=== PATIENT | female | born 1990 | race African-American/Black ===

== ENCOUNTER 2016-02-26 11:51 | Observation (INO) | payer BC ==
--- NOTE | 2016-02-26 12:07 | CPEKG ---
Heart Rate: 84 RR Interval: 714 P-R Interval: 140 QRSD Interval: 78 QT Interval: 368 QTC Interval: 436 P [place]: 45 QRS [place]: 61 T Wave [place]: 41 EKG Severity - OTHERWISE NORMAL ECG - EKG Impression: SINUS ARRHYTHMIA, RATE 68-95 EKG Impression: Very mild p.r.n. depression inferior leads Electronically Signed By: Reji Ibarra 26-Feb-2016 12:09:03
[2016-02-26] MEDS ORDERED: KETOROLAC 30 MG/1 ML SDV IVP ONE (12:26)
--- NOTE | 2016-02-26 13:01 | EDPHY ---
H & P Stated Complaint: chest pain (recent HX pericarditis) lappy 01/26 Time Seen by Provider: 02/26/16 12:57 HPI/ROS: HPI: 25-year-old female presents to emergency department with chief concern chest pain. Reports ongoing 7/10 sharp left-sided pleuritic chest pain for 1 month associated with productive intermittent cough and fever up to 105 intermittently. Was diagnosed with pericarditis on 01/17/2016. Has been using ibuprofen as well as her chronic pain meds intermittently with no improvement. Denies dizziness, nausea, vomiting, abdominal pain, diarrhea. No urinary symptoms. No calf pain or swelling. No recent long car or plane travel. Has chronic back and pelvic pain. Has a history of fibromyalgia, chronic pain, low back and pelvic pain, endometriosis. No personal or family history of coagulopathy. Works for [employer]. Patient at [facility]. Takes oral contraceptives. ROS: 10 point review of systems is negative other than as stated in HPI Source: Patient Exam Limitations: No limitations - Personal History LMP (Females 10-55): 8-14 Days Ago Current Tetanus/Diphtheria Vaccine: Unsure Current Tetanus Diphtheria and Acellular Pertussis (TDAP): Unsure Tetanus Vaccine Date: 2006 - Medical/Surgical History Hx Asthma: Yes Hx Chronic Respiratory Disease: No Hx Diabetes: No Hx Cardiac Disease: No Hx Renal Disease: No Hx Cirrhosis: No Hx Alcoholism: No Hx HIV/AIDS: No Hx Splenectomy or Spleen Trauma: No Other PMH: pericarditis, IBS, asthma, fibromyalgia, RA, eczema, breast bx, laproscopic ovarian cyst removal, unexplained hair loss, d and c, hx thyroid issues. Chronic back and pelvic pain - Family History Significant Family History: No pertinent family hx - Social History Smoking Status: Never smoked Alcohol Use: None Drug Use: Other (Chronic pain medication) Additional Social History: [employer] student - Physical Exam Exam: Vital signs temp 37.1, heart rate 97, respiratory rate 16, blood pressure 128/ 90, 96% on room air General: Awake, alert, calm, cooperative. No acute distress. Head: Normalocephalic. Atraumatic. EENT: PERRLA. EOMI. No pallor or injection. Anicteric. No nystagmus. No injection. TMs intact bilaterally with normal landmarks. No rhinnorhea, nasal passages clear. Oropharynx without redness, exudates, or lesions. Tonsils 2+ bilaterally, no exudates. Neck: Supple, nontender. No lymphadenopathy. Full range of motion. No meningismus. Respiratory: Breathing unlabored. Breath sounds diminished but clear throughout. No adventitious sounds. CV: Chest nontender, atraumatic. Heart rate regular. No murmur, distal pulses 2+ bilaterally. Brisk cap refill all extremities. GI: Abdomen soft, nontender. Bowel sounds normoactive and positive x4 quadrants. Neuro: Alert. Oriented x 3. Speech clear. Nonfocal cranial nerves throughout. Sensation intact all extremities. Skin: Skin warm, dry, intact. No rashes, abrasions, or lacerations. Skin turgor normal. Extremities: Full range of motion in all 4 extremities. Strength 5+ all extremities. Constitutional: Initial Vital Signs Temperature (C) 37.1 C 02/26/16 11:55 Heart Rate 97 02/26/16 11:55 Respiratory Rate 16 02/26/16 11:55 Blood Pressure 128/90 H 02/26/16 11:55 O2 Sat (%) 96 02/26/16 11:55 O2 Delivery Mode Room Air Allergies/Adverse Reactions: latex Allergy (Verified 01/07/16 15:48) morphine Allergy (Verified 01/07/16 15:48) shellfish derived Allergy (Verified 01/07/16 15:48) tree nut [Nuts] Allergy (Verified 01/07/16 15:48) Home Medications: Medication Instructions Recorded Baclofen [Baclofen 10 mg (*)] 10 mg PO HS 11/17/13 Loratadine [Allergy] 10 mg PO HS 11/17/13 Pregabalin [Lyrica] 450 mg PO HS 11/17/13 Hydrocodone/Acetaminophen [[place] 1 each PO HS PRN 10/23/15 5/325 (*)] Zolpidem Tartrate [Ambien 5MG (*)] 5 mg PO HS 10/23/15 Linaclotide [Linzess] 145 mcg PO HS 12/16/15 Meloxicam [Mobic 15 mg] 15 mg PO HS 01/07/16 Cholecalciferol Vit D3 [Vitamin D3 1,000 units PO HS 02/26/16 (*)] Multivitamins [Multivitamin (*)] 1 each PO HS 02/26/16 Medical Decision Making ED Course/Re-evaluation: 25-year-old female presents to emergency department with ongoing anterior left- sided sharp pleuritic chest pain x1 month. She reports fevers intermittently over the past month including a 105 degree temp 3 days ago. She will be admitted for ongoing chest pain evaluation including echo. Blood cultures are pending. EKG shows sinus dysrhythmia, rate 84. Normal intervals, no axis deviation, no evidence of acute ischemia. Chest x-ray negative. White count 4440. Basic metabolic panel unremarkable. D-dimer negative. Troponin negative , sed rate 10. Patient given 30 mg IV Toradol. Report has been given to Janeen Casillas NP. Patient will be admitted to PCU for further evaluation of her ongoing chest pain. Differential Diagnosis: Differential diagnosis includes but is not limited to costochondritis, pericarditis, acute coronary syndrome, pulmonary embolism, upper respiratory infection, pneumonia, chronic fibromyalgia - Data Points Laboratory Results: Laboratory Results 02/26/16 12:20 02/26/16 12:20 02/26/16 12:20 WBC 4.40 10^3/uL (3.80-9.50) RBC 4.88 10^6/uL (4.18-5.33) Hgb 13.4 g/dL (12.6-16.3) Hct 38.1 % (38.0-47.0) MCV 78.1 L fL (81.5-99.8) MCH 27.5 L pg (27.9-34.1) MCHC 35.2 g/dL (32.4-36.7) RDW 14.3 % (11.5-15.2) Plt Count 276 10^3/uL (150-400) MPV 10.9 fL (8.7-11.7) Neut % (Auto) 55.9 % (39.3-74.2) Lymph % (Auto) 30.9 % (15.0-45.0) [place] % (Auto) 6.6 % (4.5-13.0) Eos % (Auto) 6.1 % (0.6-7.6) Baso % (Auto) 0.5 % (0.3-1.7) Nucleat RBC Rel Count 0.0 % (0.0-0.2) Absolute Neuts (auto) 2.46 10^3/uL (1.70-6.50) Absolute Lymphs (auto) 1.36 10^3/uL (1.00-3.00) Absolute Monos (auto) 0.29 L 10^3/uL (0.30-0.80) Absolute Eos (auto) 0.27 10^3/uL (0.03-0.40) Absolute Basos (auto) 0.02 10^3/uL (0.02-0.10) Absolute Nucleated RBC 0.00 10^3/uL (0-0.01) Immature Gran % 0.0 % (0.0-1.1) Immature Gran # 0.00 10^3/uL (0.00-0.10) ESR 10 MM/HR (0-20) D-Dimer < 0.27 ug/mLFEU (0.00-0.50) Sodium 141 mEq/L (134-144) Potassium 4.0 mEq/L (3.5-5.2) Chloride 105 mEq/L (97-110) Carbon Dioxide 26 mEq/l (22-31) Anion Gap 10 mEq/L (8-16) BUN 14 mg/dL (7-23) Creatinine 0.6 mg/dL (0.6-1.0) Estimated GFR > 60 Glucose 84 mg/dL (70-100) Calcium 9.4 mg/dL (8.5-10.4) Troponin I < 0.012 ng/mL (0-0.034) Medications Given: Discontinued Medications Ketorolac Tromethamine (Toradol) 30 mg IVP EDNOW ONE Stop: 02/26/16 12:27 Last Admin: 02/26/16 12:33 Dose: 30 mg Departure - Departure Disposition: [facility] Inpatient Acute Clinical Impression: Chest pain Condition: Good
[2016-02-26 13:02] LABS: ADD DIFF? NO; ADD MORPH? NO; ADD SCAN? NO; ATYPICAL LYMPHOCYTE FLAG 30 (0-99); FRAGMENT RBC FLAG 0 (0-99); HEMATOCRIT 38.1 % (38.0-47.0); HEMOGLOBIN 13.4 g/dL (12.6-16.3); LEFT SHIFT FLG 0 (0-99); LIPEMIA HEMOLYSIS FLAG 90 (0-99); MEAN CELL HEMOGLOBIN 27.5 pg (27.9-34.1); MEAN CELL HEMOGLOBIN CONCENTR. 35.2 g/dL (32.4-36.7); MEAN CELL VOLUME 78.1 fL (81.5-99.8); MEAN PLATELET VOLUME 10.9 fL (8.7-11.7); PLATELET CLUMPS FLAG 0 (0-99); PLATELET COUNT 276 10^3/uL (150-400); RED BLOOD CELL COUNT 4.88 10^6/uL (4.18-5.33); RED CELL DISTRIBUTION WIDTH 14.3 % (11.5-15.2)
[2016-02-26 13:08] LABS: ANION GAP 10 mEq/L (8-16); CALCIUM 9.4 mg/dL (8.5-10.4); CARBON DIOXIDE 26 mEq/l (22-31); CHLORIDE 105 mEq/L (97-110); CREATININE 0.6 mg/dL (0.6-1.0); GLOMERULAR FILTRATION RATE > 60; GLUCOSE 84 mg/dL (70-100); SODIUM 141 mEq/L (134-144)
--- NOTE | 2016-02-26 13:38 | DX ---
Chest PA and lateral HISTORY: Left-sided chest pain. FINDINGS: Compare January 17, 2016. Heart and pulmonary vessels are normal. Lungs are clear. No pleur al effusion. No pneumothorax. Mild scoliosis is unchanged. IMPRESSION: Essentially negative. No change from January 17, 2016.
[2016-02-26 14:03] LABS: HEMATOCRIT 37.7 % (38.0-47.0)
[2016-02-26] MEDS ORDERED: HYDROCODONE/APAP 5/325 TAB PO PRN (15:17)
[2016-02-26] MEDS ORDERED: ACETAMINOPHEN 325 MG TAB PO PRN (15:22)
[2016-02-26] MEDS ORDERED: ONDANSETRON 4 MG/2 ML VIAL IVP PRN (15:22)
[2016-02-26] MEDS ORDERED: PROMETHAZINE HCL 25 MG/ML VIAL IVP PRN (15:22)
[2016-02-26] MEDS ORDERED: NS 1,000 ML IV SCH (15:30)
--- NOTE | 2016-02-26 15:53 | GHP ---
[f rep st] HISTORY AND PHYSICAL DATE OF ADMISSION: 02/26/2016 CHIEF COMPLAINT: Chest pain. HISTORY: Natalia is a 25-year-old female, who has been having constant chest pain for the last month. She was seen in the emergency room a few weeks ago and was diagnosed with pericarditis. She has co ntinuous chest pain that has not improved over the last couple of weeks. She has ongoing shortness o f breath and lightheadedness. The chest pain is constant 24/, although it does worsen with activity . Just walking across campus, she gets increasing chest pain. The chest pain wakes her up at night. She describes it as a left-sided sharp pain that is reproducible to chest wall palpation, radiates from the front to the back. It is pleuritic only sometimes. She has also had intermittent fevers over the last 3 weeks. Her last fever was 3 days ago when she h ad a temperature of a 105. Fever has been coming and going. PAST MEDICAL HISTORY: 1. Recent pericarditis. 2. Fibromyalgia. 3. Endometriosis, status post recent laparoscopic pelvic surgery. 4. Rheumatoid arthritis. 5. Asthma. MEDICATIONS: Please see computer record for full detailed list. ALLERGIES: Shellfish, latex, and morphine. SOCIAL HISTORY: No smoking. No alcohol. She lives with roommates. 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 She i s originally from [place] and her parents both still live in the state. REVIEW OF SYSTEMS: Complete review of systems obtained and review of systems is negative on constitu tional, HEENT, GI, pulmonary, cardiovascular, , hematology, musculoskeletal, endocrine, psych excep t for positives and negatives as in HPI. FAMILY HISTORY: Parents are both alive and healthy with hypertension and asthma. PHYSICAL EXAMINATION: GENERAL: Well developed, well nourished female, in no acute distress. VITAL SIGNS: Temperature is 37.1, pulse 76, blood pressure 128/63, satting 95% on room air. EYES: Normal conjunctiva. Pupils equal and reactive to light. ENT: Normal ears and nose. Hearing intact. Norm al teeth. Oropharynx is moist. NECK: Trachea midline. No thyromegaly. CHEST: Normal effort. JAVON GS: Clear to auscultation bilaterally. CARDIOVASCULAR: Regular rhythm. No murmur. No lower extre mity edema. ABDOMEN: Soft, nontender. No hepatosplenomegaly. SKIN: Warm, dry, intact without casey h. MUSCULOSKELETAL: No cyanosis or clubbing. NEUROLOGIC: Strength 5/5 upper and lower extremities . NEUROLOGIC: Cranial nerves intact. Normal sensation to light touch. PSYCH ASSESSMENT: Alert and oriented x3. Normal mood and affect. Normal judgment. Normal memory. LABS: White count 4.4, hematocrit 37.7, platelets 276. Sodium 141, potassium 4.0, chloride 105, bic arb 26, BUN 14, creatinine 0.6, glucose 84. Troponins negative. Sed rate is 10. D-dimer is negativ e. IMAGING: EKG viewed by me and my personal interpretation is normal sinus rhythm, no ST-T wave change s. Chest x-ray is negative. ASSESSMENT AND PLAN: 1. Continuous chest pain for the last 3 weeks. She has minimal risk factors for coronary artery dis ease and very atypical presentation, so doubt ischemia. Will check 1 more troponin. I also doubt pu lmonary embolus with her negative D-dimer. She was told in the emergency room a few weeks ago that s he had pericarditis. I do not think they ever had any objective findings to confirm this. I will ch maggy an echocardiogram to rule out development of effusion. My suspicion is that this may be musculos keletal in origin. She may have a costochondritis. Will treat with NSAIDs. 2. Fever. Blood cultures were sent in the emergency room. She is currently afebrile and has a norm al white blood cell count with normal differential. Influenza is pending. Will monitor clinical cou rse. 3. Fibromyalgia. Will continue her usual Lyrica and baclofen. ADMISSION STATUS: 1. Will admit to observation. Depending on clinical course, she may go home tomorrow. 2. DVT prophylaxis. She is low risk. Will hold off on pharmacologic prophylaxis. 3. Code status is full. /[id number]/MODL
--- NOTE | 2016-02-26 16:19 | ECHO ---
[id number] + + [id number] : : [place] [address] : : [phone] + Adult Echocardiographic Report + ----+ :Name: NAVDEEP SANTIAGO JStudy Date: 02/26/2016 03:32 PM : : Hospital Admission Number: [id number] Location: 222: :: 1990 Gender: Female Height: 63 in : :Age: 25 yrs Race: BAA Weight: 121 lb : :Reason For Study: Eval for pericarditis : : BSA: 1.6 meters2 : :History: History of Endocarditis, New onset Chest Pain : + ----+ MMode/2D Measurements & Calculations IVSd: 0.77 cm LVIDd: 4.0 cm FS: 39.4 % Ao root diam: 2.6 cm LVPWd: 0.79 cm LVIDs: 2.4 cm EDV(Teich): 70.6 ml ACS: 1.5 cm ESV(Teich): 20.9 ml EF(Teich): 70.4 % Normal Measurement Values: + + :LVIDd (3.5-5.7cm) IVSd (0.6-1.1cm) LVPWd (0.6-1.1cm) Aortic Root (2.0-3.7cm)Left Atrium (1.5-4.0cm): :LV Vol(d) (76-115ml) LV Vol(s) (29-48ml) Ejec Fraction (50-65%)PV Lester (0.6- 1.2m/s) TV Lester (0.4-1.0m/s) : :MV E Lester (0.8-1.0m/s)MV A [place]ester (0.3-1.0m/s)LVOT [place]ester (0.7-1.2m/s) Asc Ao Lester ( 0.9-1.8m/s) : + + Doppler Measurements & Calculations MV E max lester: Ao V2 max: LV V1 max: MR max lester: 74.0 cm/sec 101.8 cm/sec 79.0 cm/sec 369.2 cm/sec MV A max lester: Ao max PG: LV V1 max PG: MR max P.0 cm/sec 4.1 mmHg 2.5 mmHg 54.5 mmHg MV E/A: 1.8 PA V2 max: 88.2 cm/sec PA max P.1 mmHg Left Ventricle The left ventricle is normal in size. There is normal left ventricular wall thickness. The left ventricular ejection fraction is normal. Ejection Fraction = 71%. No regional wall motion abnormalities noted. Right Ventricle The right ventricle is normal in size and function. Atria The left atrial size is normal. Right atrial size is normal. Mitral Valve The mitral valve leaflets appear thickened, but open well. There is no evidence of mitral valve prolapse. There is no mitral valve stenosis. There is trace mitral regurgitation. Tricuspid Valve Normal tricuspid valve. No tricuspid regurgitation. Aortic Valve The aortic valve is normal in structure and function. There is no aortic stenosis. There is no aortic insufficiency. Pulmonic Valve The pulmonic valve is normal in structure and function. There is no pulmonic valvular regurgitation. Great Vessels The aortic root is normal size. Pericardium/Pleural There is no pericardial effusion. Conclusion A complete two-dimensional transthoracic echocardiogram was performed (2D, M-mode, Doppler and color flow Doppler). The left ventricular ejection fraction is normal. Ejection Fraction = 71%. No regional wall motion abnormalities noted. The right ventricle is normal in size and function. The mitral valve leaflets appear thickened, but open well. There is trace mitral regurgitation. Normal tricuspid valve The aortic valve is normal in structure and function. There is no aortic stenosis. There is no pericardial effusion. I DID SOME OFF AXIS VIEWS AT THE END TO LOOK FOR EFFUSION, TRIVIAL IF AT ALL JEYSON Final Reading Physician: Halle Mendiola signed on 02/26/2016 04:16 PM Ordering Physician: Lou Winston Performed By: eJyson Tobin, ROGERCS
[2016-02-26] MEDS: KETOROLAC 30 MG/1 ML SDV IVP PRN (20:32)
[2016-02-26] MEDS ORDERED: PREGABALIN PO SCH ×2 (21:00)
[2016-02-26] MEDS ORDERED: ZOLPIDEM TARTRATE 5 MG TAB PO SCH (21:00)
[2016-02-26] MEDS ORDERED: CETIRIZINE 10 MG TAB PO SCH (21:00)
[2016-02-26] MEDS ORDERED: NON-FORMULARY NEW DRUG (Meloxicam [Mobic 15 Mg] 15 MG) PO SCH (21:00)
[2016-02-26] MEDS ORDERED: [UNRECOGNIZED DRUG - REMARK] PO SCH (21:00)
[2016-02-26] MEDS ORDERED: MELOXICAM 15 MG PO SCH (21:00)
[2016-02-26] MEDS ORDERED: BACLOFEN 10 MG TAB PO SCH (21:00)
[2016-02-26] MEDS ORDERED: LINACLOTIDE 145 MCG PO SCH (21:00)
[2016-02-26] MEDS ORDERED: Linaclotide [Linzess] 145 MCG) PO ONE (21:00)
[2016-02-26] MEDS ORDERED: LYRICA 150 MG PO ONE (21:00)
[2016-02-26] MEDS ORDERED: Linaclotide [Linzess] 145 MCG) PO SCH (21:00)
[2016-02-26 21:48] LABS: COLOR YELLOW; LEUKOCYTE ESTERASE,URINE NEGATIVE (NEGATIVE); NITRITE,URINE NEGATIVE (NEGATIVE)
[2016-02-27 05:36] LABS: TROPONIN I < 0.012 ng/mL (0-0.034)
[2016-02-27 05:38] LABS: ALANINE AMINOTRANSFERASE 29 IU/L (9-52); ALBUMIN 3.4 g/dL (3.5-5.0); ALKALINE PHOSPHATASE 88 IU/L (38-126); ASPARTATE AMINOTRANSFERASE 19 IU/L (14-46); BILIRUBIN,TOTAL 0.6 mg/dL (0.1-1.4); BILIRUBIN-CONJUGATED 0.3 mg/dL (0.0-0.5); BILIRUBIN-UNCONJUGATED 0.3 mg/dL (0.0-1.1); C-REACTIVE PROTEIN 9.2 mg/L (<10.0); CHOLESTEROL 179 mg/dL (140-200); CHOLESTEROL/HDL RATIO 3.73 RATIO (1.00-4.44); HIGH DENSITY LIPOPROTEIN 48 mg/dL (40-75); LOW DENSITY LIPOPROTEIN 120 mg/dL (60-100); NON-HIGH DENSITY LIPOPROTEIN 131 mg/dL (90-129); TOTAL PROTEIN 6.4 g/dL (6.3-8.2); TRIGLYCERIDE 59 mg/dL (35-135); VERY LOW DENSITY LIPOPROTEINS 11 mg/dL (8-25)
[2016-02-27] MEDS: KETOROLAC 30 MG/1 ML SDV IVP PRN (06:21)
[2016-02-27 07:48] VITALS: BP 105/57; PULSE 75; RESP 15; TEMP 98.2; O2SAT 95
--- NOTE | 2016-02-27 15:05 | CPEKG ---
Heart Rate: 76 RR Interval: 789 P-R Interval: 168 QRSD Interval: 76 QT Interval: 380 QTC Interval: 428 P [place]: 44 QRS [place]: 52 T Wave [place]: 39 EKG Severity - NORMAL ECG - EKG Impression: SINUS RHYTHM Electronically Signed By: Taco Portillo 27-Feb-2016 15:03:59
--- NOTE | 2016-02-27 19:41 | GDS ---
[f rep st] DISCHARGE SUMMARY DISCHARGE DIAGNOSES: 1. Noncardiac chest pain, suspect musculoskeletal. 2. Fibromyalgia. HISTORY: Natalia Mason is a 25-year-old female, who has had constant chest pain for the last month. S he had an ER visit a few weeks ago and was diagnosed with pericarditis by symptoms, although she neve r had any EKG changes or other objective findings. Since that time, she has had persistent chest briseida n over the last month, which is reproducible to chest wall palpation. Her presentation is very atypi steff and she has no risk factors, so ischemia is very unlikely. Her troponin was negative. Her D-dim er was negative. We did an echocardiogram and she did not have any type of pericardial effusion. Sh jim continues to have no EKG changes consistent with pericarditis. Given the reproducibility upon ches t wall palpation, I suspect this is musculoskeletal in origin. She may have costochondritis. I jero mmended NSAID therapy. DISCHARGE MEDICATIONS: Please see computer record for full detailed list. New medications: Motrin 8 00 mg p.o. t.i.d. ADDITIONAL DISCHARGE INSTRUCTIONS: She does a lot of heavy lifting at her job as she works in the [employer] at [employer]. Perhaps with some activity restrictions, this chest wall pain subhash l have an opportunity to heal. She is to have no lifting over 10 pounds for the next 2 weeks. Patient was seen and examined by me on the day of discharge. /[id number]/MODL
== END 2016-02-27 11:55 | disposition home or self-care (01) ==
LOC: F2W 14:39
PROVIDERS: ADMIT Internal Medicine; ATTEND Internal Medicine
DX: R07.9 Chest pain, unspecified (principal); M79.7 Fibromyalgia
CPT/HCPCS: 71020; 93005; 93306; 96374; 99285; G0378; J1885

== ENCOUNTER 2016-12-17 22:39 | Emergency (ER) | payer BC, OTHER ==
[2016-12-17 22:46] VITALS: BP 123/78
--- NOTE | 2016-12-17 23:21 | EDPHY ---
H & P Stated Complaint: fibrocystic breast disease flare, c/o cp/dizziness Time Seen by Provider: 12/17/16 22:52 HPI/ROS: CC: Chest pain HPI: 26 year old woman complaining of two weeks of pain in her left breast/ chest. Pain is constant. Worse with movement of her left arm. She was seen by her PCP last week and diagnosed with fibrocystic change of her breasts. She has a history of fibromyalgia, rheumatoid arthritis, asthma. She ahs been taking her usual medications with no relief. She also has a history of a benign cyst removed from her breast. No SOB. No exertional pain. Pain is constant. No cough. ROS: 12 point ROS negative except as noted in HPI Soc: no smoking, no alcohol, no other drug use FH: HTN Exam: Gen: Awake, alert, NAD HEENT: atraumatic, moist oral mucosa Neck: supple, no JVD or lymphadenopathy Chest: Chest tenderness b/l with palpation fo the costal-chondro margin reproducing presenting complaint. Lungs are CTA bilaterallly Breast exam done with nurse Kandace weir. Mild fibrocystic change. No large masses. No skin lesions. No erythema. No fluctuance. No nipple discharge. Heart: No murmur Abd: Soft, non-tender Ext: full ROM, no edema Neuro: CN II-XII intact, nl strength and sensation. - Personal History Tetanus Vaccine Date: 2006 - Medical/Surgical History Hx Asthma: Yes Hx Chronic Respiratory Disease: No Hx Diabetes: No Hx Cardiac Disease: No Hx Renal Disease: No Hx Cirrhosis: No Hx Alcoholism: No Hx HIV/AIDS: No Hx Splenectomy or Spleen Trauma: No Other PMH: pericarditis, IBS, asthma, fibromyalgia, RA, eczema, fibrocystic breast disease, breast bx, laproscopic ovarian cyst removal, unexplained hair loss, d and c, hx thyroid issues. Chronic back and pelvic pain - Social History Smoking Status: Never smoked Constitutional: Initial Vital Signs Temperature (C) 37.2 C 12/17/16 22:42 Heart Rate 122 H 12/17/16 22:42 Respiratory Rate 16 12/17/16 22:42 Blood Pressure 123/78 H 12/17/16 22:42 O2 Sat (%) 95 12/17/16 22:42 O2 Delivery Mode Room Air Allergies/Adverse Reactions: latex Allergy (Verified 12/17/16 22:46) morphine Allergy (Verified 12/17/16 22:46) shellfish derived Allergy (Verified 12/17/16 22:46) tree nut [Nuts] Allergy (Verified 12/17/16 22:46) Home Medications: Medication Instructions Recorded Baclofen [Baclofen 10 mg (*)] 10 mg PO HS 11/17/13 Loratadine [Allergy] 10 mg PO HS 11/17/13 Pregabalin [Lyrica] 450 mg PO HS 11/17/13 Hydrocodone/Acetaminophen [[place] 1 each PO HS PRN 10/23/15 5/325 (*)] Zolpidem Tartrate [Ambien 5MG (*)] 5 mg PO HS 10/23/15 Linaclotide [Linzess] 145 mcg PO HS 12/16/15 Cholecalciferol Vit D3 [Vitamin D3 1,000 units PO HS 02/26/16 (*)] Multivitamins [Multivitamin (*)] 1 each PO HS 02/26/16 Ibuprofen [Motrin (*)] 800 mg PO TID #90 tab 02/27/16 Medical Decision Making ED Course/Re-evaluation: 26 year old with chest wall pain. She has a history of the same. Reproducible pain on exam. No findings suggesting mass or abscess.No sx suggesting cardiac or lung process. She is takaing NSAIDS without relief. Will send her home with a hydorocodone take-home pack, have her f/u with her PCP. - Data Points Medications Given: Discontinued Medications Hydrocodone Bitart/Acetaminophen ([place] 5/325mg Prepack#6) [address] [facility] EDNOW ONE Stop: 12/17/16 23:27 Last Admin: 12/17/16 23:35 Dose: 1 btl Departure - Departure Disposition: Home, Routine, Self-Care Clinical Impression: Chest wall pain Condition: Good Instructions: Hydrocodone/Acetaminophen (By mouth), Chest Wall Pain (ED) Additional Instructions: Follow-up with your primary physician tomorrow. Return to the ER for increasing pain, shortness of breath, fever, chills, or any other concerns. Referrals: NONE *PRIMARY CARE P,. [Primary Care Provider] - As per Instructions [facility],. [Clinic] - As per Instructions
[2016-12-17] MEDS ORDERED: HYDROCOD/APAP 5/325 PREPACK#6 BTL TAKEHOME ONE (23:26)
[2016-12-18 00:01] VITALS: PULSE 69; RESP 18; TEMP 98.4; O2SAT 97
== END 2016-12-18 00:04 | disposition home or self-care (01) ==
DX: R07.89 Other chest pain (principal); J45.909 Unspecified asthma, uncomplicated; Z91.040 Latex allergy status

== ENCOUNTER 2017-02-17 12:05 | Emergency (ER) | payer OTHER ==
--- NOTE | 2017-02-17 12:32 | EDPHY ---
General Narrative: CHIEF COMPLAINT: Flu-like symptoms, diarrhea HISTORY OF PRESENT ILLNESS: Patient complains of 2 days history of flu-like symptoms. She started feeling nauseated with body aches and chills on Wednesday. Symptoms are [id number]. The vomiting has now stopped and switched diarrhea. She has had 6 bowel movements today with increasing liquid ED. She has fever, body aches, chills, myalgias and malaise. No neck pain or stiffness. Occasional headache. No chest pain. Minimal cough. She recently travel to [place]. She has no improvement with her normal routine medications. No other associated complaints or modifying factors. REVIEW OF SYSTEMS: Ten systems reviewed and are negative unless otherwise noted in the HPI PCP: None SPECIALISTS: Pain management and OB Gyne physicians PAST MEDICAL HISTORY: Rheumatoid arthritis, fibromyalgia, pericarditis, irritable bowel syndrome, or chronic back and pelvic pain PAST SURGICAL HISTORY: No recent surgeries SOCIAL HISTORY: Nonsmoker. 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 Airway is widely patent. No erythema or edema Neck: Normal inspection, supple, non-tender. Painless range of motion all planes. No meningeal signs. Respiratory: Lungs are clear to auscultation. No wheezing rhonchi or crackles Cardiovascular: Regular rate and rhythm. No murmur. Symmetric DP pulses 2+. Gastrointestinal: Abdomen is soft and nontender. No tympany or rigidity. No distention. No CVA tenderness. Back: non-tender, no bony abnormalities Neurological: GCS 15. A&O, nonfocal, normal gait Skin: Warm and dry, no rash no petechiae or purpura Extremities: Nontender, no pedal edema Psychiatric: Mood and affect normal DIFFERENTIAL DIAGNOSES: Including but not limited to influenza, viral illness, norovirus, gastroenteritis, dehydration MDM: 12:45 p.m. Flu-like symptoms with some diarrhea as well. She has recently traveled but has no known sick contacts. Vital signs are within normal limits including 99% oxygenation on room air. I do not feel she warrants a chest x-ray at this time. I have ordered laboratory studies and IV fluid. Influenza test pending. 1:30 p.m. Notified by RN. Patient is now complaining of urinary complaints and has a urine sample. I have ordered UA microscopy. She also says she has some lower extremity swelling and is worried that she has a blood clot because she has had a DVT in the past, and she did recently fly to [place]. I do not appreciate any edema but I have ordered a D-dimer. 2:30 p.m. Laboratory studies are unremarkable. Normal CBC, chemistry and negative D- dimer. Influenza test is negative. Vital signs remained well within normal limits. I suspect this is likely a viral etiology. I have re-evaluated the patient at this time. She still complains of some nausea and GI discomfort but no active vomiting. She is feeling better with IV fluid. Vital signs remained stable. She has no chest pain. She is not hypoxic. I do feel that she has a viral illness. I feel like other diagnoses are unlikely. I recommend close follow up with primary care physician is emergency department that she does not improve shortly. She should return to the emergency department immediately for any chest pain, shortness of breath, swelling or erythema of the legs or arms. She is comfortable with this plan and discharged home stable condition. SUPERVISION: Patient was independently examined, but I discussed the case with my secondary supervising physician Dr. Ibarra - History Smoking Status: Never smoked - Objective Vital Signs: Initial Vital Signs Temperature (C) 98.2 F 02/17/17 12:11 Heart Rate 82 02/17/17 12:11 Respiratory Rate 16 02/17/17 12:11 Blood Pressure 138/78 H 02/17/17 12:11 O2 Sat (%) 99 02/17/17 12:11 O2 Delivery Mode Room Air Allergies/Adverse Reactions: amoxicillin [From Augmentin] Allergy (Verified 02/17/17 12:14) clavulanic acid [From Augmentin] Allergy (Verified 02/17/17 12:14) latex Allergy (Verified 12/17/16 22:46) morphine Allergy (Verified 12/17/16 22:46) shellfish derived Allergy (Verified 12/17/16 22:46) tree nut [Nuts] Allergy (Verified 12/17/16 22:46) Home Medications: Medication Instructions Recorded Baclofen [Baclofen 10 mg (*)] 10 mg PO HS 11/17/13 Loratadine [Allergy] 10 mg PO HS 11/17/13 Pregabalin [Lyrica] 450 mg PO HS 11/17/13 Hydrocodone/Acetaminophen [[place] 1 each PO HS PRN 10/23/15 5/325 (*)] Zolpidem Tartrate [Ambien 5MG (*)] 5 mg PO HS 10/23/15 Linaclotide [Linzess] 145 mcg PO HS 12/16/15 Cholecalciferol Vit D3 [Vitamin D3 1,000 units PO HS 02/26/16 (*)] Multivitamins [Multivitamin (*)] 1 each PO HS 02/26/16 Ibuprofen [Motrin (*)] 800 mg PO TID #90 tab 02/27/16 Ondansetron Odt [Zofran Odt 4 mg 4 mg PO Q6 PRN #12 tab 02/17/17 (*)] Promethazine HCl [Phenergan 25mg 25 mg PO Q8 PRN #12 tab 02/17/17 (*)] Laboratory Results: Laboratory Results 02/17/17 11:32 02/17/17 12:50 02/17/17 02/17/17 02/17/17 13:38 13:15 12:50 WBC RBC Hgb Hct MCV MCH MCHC RDW Plt Count MPV Neut % (Auto) Lymph % (Auto) [place] % (Auto) Eos % (Auto) Baso % (Auto) Nucleat RBC Rel Count Absolute Neuts (auto) Absolute Lymphs (auto) Absolute Monos (auto) Absolute Eos (auto) Absolute Basos (auto) Absolute Nucleated RBC Immature Gran % Immature Gran # D-Dimer 0.36 ug/mLFEU ug/mLFEU (0.00-0.50) Sodium 144 mEq/L mEq/L (135-145) Potassium 3.8 mEq/L mEq/L (3.5-5.2) Chloride 106 mEq/L mEq/L (97-110) Carbon Dioxide 22 mEq/l mEq/l (22-31) Anion Gap 16 mEq/L mEq/L (8-16) BUN 4 mg/dL L mg/dL (7-23) Creatinine 0.6 mg/dL mg/dL (0.6-1.0) Estimated GFR > 60 Glucose 110 mg/dL H mg/dL (70-100) Calcium 10.0 mg/dL mg/dL (8.5-10.4) Lipase 59 IU/L IU/L (23-300) Beta HCG, Qual Urine Color PALE YELLOW Urine Appearance CLEAR Urine pH 7.0 (5.0-7.5) Ur Specific [place] 1.004 (1.002-1.030) Urine Protein NEGATIVE (NEGATIVE) Urine Ketones NEGATIVE (NEGATIVE) Urine Blood NEGATIVE (NEGATIVE) Urine Nitrate NEGATIVE (NEGATIVE) Urine Bilirubin NEGATIVE (NEGATIVE) Urine Urobilinogen NEGATIVE EU EU (0.2-1.0) Ur Leukocyte Esterase NEGATIVE (NEGATIVE) Urine RBC 1-3 /hpf /hpf (0-3) Urine WBC 1-3 /hpf /hpf (0-3) Ur Epithelial Cells TRACE /lpf /lpf (NONE-1+) Urine Bacteria TRACE /hpf H /hpf (NONE SEEN) Urine Mucus TRACE /lpf /lpf (NONE-1+) Urine Glucose NEGATIVE (NEGATIVE) Nasal Influenza A PCR Nasal Influenza B PCR 02/17/17 02/17/17 02/17/17 12:23 11:32 11:32 WBC 5.10 10^3/uL 10^3/uL (3.80-9.50) RBC 5.05 10^6/uL 10^6/uL (4.18-5.33) Hgb 14.3 g/dL g/dL (12.6-16.3) Hct 38.9 % % (38.0-47.0) MCV 77.0 fL L fL (81.5-99.8) MCH 28.3 pg pg (27.9-34.1) MCHC 36.8 g/dL H g/dL (32.4-36.7) RDW 14.6 % % (11.5-15.2) Plt Count 287 10^3/uL 10^3/uL (150-400) MPV 10.4 fL fL (8.7-11.7) Neut % (Auto) 69.0 % % (39.3-74.2) Lymph % (Auto) 24.5 % % (15.0-45.0) [place] % (Auto) 4.3 % L % (4.5-13.0) Eos % (Auto) 1.6 % % (0.6-7.6) Baso % (Auto) 0.2 % L % (0.3-1.7) Nucleat RBC Rel Count 0.0 % % (0.0-0.2) Absolute Neuts (auto) 3.52 10^3/uL 10^3/uL (1.70-6.50) Absolute Lymphs (auto) 1.25 10^3/uL 10^3/uL (1.00-3.00) Absolute Monos (auto) 0.22 10^3/uL L 10^3/uL (0.30-0.80) Absolute Eos (auto) 0.08 10^3/uL 10^3/uL (0.03-0.40) Absolute Basos (auto) 0.01 10^3/uL L 10^3/uL (0.02-0.10) Absolute Nucleated RBC 0.00 10^3/uL 10^3/uL (0-0.01) Immature Gran % 0.4 % % (0.0-1.1) Immature Gran # 0.02 10^3/uL 10^3/uL (0.00-0.10) D-Dimer Sodium Potassium Chloride Carbon Dioxide Anion Gap BUN Creatinine Estimated GFR Glucose Calcium Lipase Beta HCG, Qual NEGATIVE Urine Color Urine Appearance Urine pH Ur Specific [place] Urine Protein Urine Ketones Urine Blood Urine Nitrate Urine Bilirubin Urine Urobilinogen Ur Leukocyte Esterase Urine RBC Urine WBC Ur Epithelial Cells Urine Bacteria Urine Mucus Urine Glucose Nasal Influenza A PCR NEGATIVE FOR FLU A (NEGATIVE) Nasal Influenza B PCR NEGATIVE FOR FLU B (NEGATIVE) Medications Given: Discontinued Medications Dexamethasone (Decadron Injection) 10 mg IVP EDNOW ONE Stop: 02/17/17 13:10 Last Admin: 02/17/17 13:18 Dose: 10 mg Sodium Chloride (Ns) 1,000 mls @ 0 mls/hr IV EDNOW ONE; Wide Open PRN Reason: Protocol Stop: 02/17/17 12:45 Last Admin: 02/17/17 13:00 Dose: 1,000 mls Ketorolac Tromethamine (Toradol) 30 mg IVP EDNOW ONE Stop: 02/17/17 13:11 Last Admin: 02/17/17 13:18 Dose: 30 mg Departure - Departure Disposition: Home, Routine, Self-Care Clinical Impression: Flu-like symptoms Condition: Good Instructions: Gastritis (ED), Gastroenteritis (ED), Influenza (ED) Additional Instructions: 1. [id number] anti-inflammatories as discussed as needed 2. Increase fluid intake 3. Nausea medications as provided as needed 4. Contact the on-call primary care physician as provided 5. Return to emergency department immediately for any chest pain, shortness of breath, redness or swelling of the extremities 6. Return to emergency department for ongoing diarrhea, difficulty keeping fluids in, fever Referrals: Melanie Perrin MD [Medical Doctor] - As per Instructions Prescriptions: Ondansetron Odt [Zofran Odt 4 mg (*)] 4 mg PO Q6 PRN #12 tab PRN Reason: Nausea/Vomiting, Use 1st Promethazine HCl [Phenergan 25mg (*)] 25 mg PO Q8 PRN #12 tab PRN Reason: Nausea/Vomiting, Use 1st
[2017-02-17] MEDS ORDERED: NS 1,000 ML IV ONE (12:44)
[2017-02-17] MEDS ORDERED: DEXAMETHASONE 10 MG/ML VIAL ONE (13:08)
[2017-02-17] MEDS ORDERED: KETOROLAC 30 MG/1 ML SDV ONE (13:08)
[2017-02-17] MEDS ORDERED: DEXAMETHASONE 10 MG/ML VIAL IVP ONE (13:09)
[2017-02-17 13:10] LABS: PLATELET COUNT 287 10^3/uL (150-400)
[2017-02-17] MEDS ORDERED: KETOROLAC 30 MG/1 ML SDV IVP ONE (13:10)
[2017-02-17 15:04] VITALS: BP 120/63; PULSE 72; RESP 18; TEMP 99; O2SAT 94
== END 2017-02-17 15:04 | disposition home or self-care (01) ==
DX: J11.1 Influenza due to unidentified influenza virus with other respiratory manifestations (principal); Z91.040 Latex allergy status
CPT/HCPCS: 96374; J1100; J1885